=== PATIENT | female | born 1950 | race Caucasian/White ===

== ENCOUNTER → 2018-05-15 | Day surgery (SDC) | payer MEDICARE, OTHER ==
[~2018-05-15] MED LIST: Propofol 200 MG/20 ML SDV IV ONE
[2018-05-15] MEDS: Lactated Ringers 1,000 ML IV SCH (09:03)
[2018-05-15 10:35] VITALS: BP 137/68
--- NOTE | 2018-05-15 11:37 | OR ---
DATE OF OPERATION: 05/15/2018 PREOPERATIVE DIAGNOSIS: 1. GASTROESOPHAGEAL REFLUX DISEASE. 2. EPIGASTRIC PAIN. POSTOPERATIVE DIAGNOSIS: 1. GASTROESOPHAGEAL REFLUX DISEASE. 2. EPIGASTRIC PAIN. SURGEON: Yoni Srinivasan MD PROCEDURE: EGD WITH BIOPSY X2, LISY. ANESTHESIA: MEDICAL SUPERINTENDENT. COMPLICATIONS: None. SPECIMEN: 1. Fundal biopsy x2. 2. LIYS. FINDINGS: 1. Full-length EGD. 2. Status post Ayana-en-Y gastric bypass. 3. Minimal gastritis. 4. GERD without esophagitis. RECOMMENDATIONS: Ongoing medical followup. INDICATIONS: The patient has a history of gastric bypass. About 5 years ago, she was having similar type pain and symptoms and she had a large anastomotic ulcer. We elected to proceed with repeat EGD. DESCRIPTION OF PROCEDURE: The patient was prepped and draped, placed in the left lateral decubitus position. A lubricated Olympus gastroscope was inserted over bite, advanced to the cricopharyngeus area, and easily intubated into the esophagus. The esophageal lining was benign in its entire course. The Z-line was crisp and sharp at 39 cm. There was no hernia present. Spontaneous reflux was minimal and there was no distal esophagitis, stricturing, ulceration, or Bobo's changes. The scope was advanced into the stomach. Antrum has been removed. Ayana-en-Y bypass present. There are no signs of any ulcers in the entire remaining stomach or at the anastomosis or on the jejunal side. Thorough evaluation shows maybe some very minimal gastritis of the fundus. Two biopsies and a LISY were taken. Air was then suctioned from the stomach and scope removed without complication. JARRETT/SHOAIB /[id number]
== END ==
LOC: CC.SDS 08:36
PROVIDERS: ATTEND Family Medicine
DX: K21.9 Gastro-esophageal reflux disease without esophagitis (principal); K29.50 Unspecified chronic gastritis without bleeding; I10 Essential (primary) hypertension; E53.8 Deficiency of other specified B group vitamins; J30.9 Allergic rhinitis, unspecified; F41.9 Anxiety disorder, unspecified; F17.210 Nicotine dependence, cigarettes, uncomplicated; Z79.82 Long term (current) use of aspirin; Z98.84 Bariatric surgery status; Z79.899 Other long term (current) drug therapy; Z88.8 Allergy status to other drugs, medicaments and biological substances
CPT/HCPCS: 00731; 87081; 88305; 88342; J2704; J7120

== ENCOUNTER 2024-07-30 08:46 | Day surgery (SDC) | payer MEDICARE, OTHER ==
[2024-07-30] MEDS: Lactated Ringers 1,000 ML IV SCH (09:12)
[2024-07-30] MEDS ORDERED: Midazolam 1 MG/ML 2 ML SDV ONE (09:20)
[2024-07-30] MEDS ORDERED: Lidocaine 2% 20 ML MDV ONE (09:20)
[2024-07-30] MEDS ORDERED: Ketamine 200 MG/20 ML MDV ONE (09:20)
[2024-07-30] MEDS ORDERED: Propofol 200 MG/20 ML SDV ONE (09:20)
[2024-07-30] MEDS ORDERED: fentaNYL 50 MCG/ML SDV ONE (09:20)
[2024-07-30] MEDS ORDERED: Flumazenil 0.1 MG/ML 5 ML MDV ONE (09:20)
[2024-07-30 11:22] VITALS: BP 147/74; PULSE 88
== END 2024-07-30 11:02 | disposition home or self-care (01) ==
LOC: CC.SDS 08:46
PROVIDERS: ATTEND Family Medicine
DX: Z12.11 Encounter for screening for malignant neoplasm of colon (principal); K57.30 Diverticulosis of large intestine without perforation or abscess without bleeding; J44.9 Chronic obstructive pulmonary disease, unspecified; K21.9 Gastro-esophageal reflux disease without esophagitis; F41.9 Anxiety disorder, unspecified; I10 Essential (primary) hypertension; F33.9 Major depressive disorder, recurrent, unspecified; M81.0 Age-related osteoporosis without current pathological fracture; Z98.84 Bariatric surgery status; Z79.899 Other long term (current) drug therapy; Z88.8 Allergy status to other drugs, medicaments and biological substances; Z86.0100 Personal history of colon polyps, unspecified
CPT/HCPCS: 00813; 88305; J2003; J2250; J2704; J3010; J3490; J7120